=== PATIENT | female | born 1965 | race Caucasian/White ===

== ENCOUNTER 2018-08-26 13:16 | Emergency (ER) | payer MEDICAID ==
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
[2018-08-26 13:29] VITALS: BMI 35.3
[2018-08-26] MEDS ORDERED: TDAP Vaccine 0.5 mL Syr IM ONE (13:29)
[2018-08-26] MEDS ORDERED: Lidocaine 1% Inj (20ml) IJ STA (14:38)
--- NOTE | 2018-08-26 14:44 | CT ---
Date of service: 08/26/2018 PROCEDURE: CT MAXILLOFACIAL BONES WITHOUT CONTRAST HISTORY: LACERATION under R eeye, r/o fb COMPARISON: None available. TECHNIQUE: Contiguous axial CT images of the maxillofacial bones were obtained. Coronal and sagittal reformats were generated. Radiation dose: Total exam DLP = 726.1 mGy-cm. This CT exam was performed using one or more of the following dose reduction techniques: Automated exposure control, adjustment of the mA and/or kV according to patient size, and/or use of iterative reconstruction technique. FINDINGS: NASAL BONES: Unremarkable. ORBITS: Unremarkable. PARANASAL SINUSES/ MASTOIDS: Clear. MAXILLA: Unremarkable. MANDIBLE/ TEMPOROMANDIBULAR JOINTS: Unremarkable. SKULL BASE: Unremarkable. TEMPORAL BONES: Middle ears and mastoid grossly unremarkable. OTHER FINDINGS: No evidence of foreign body IMPRESSION: Unremarkable non contrast enhanced CT of the maxillofacial bones.
[2018-08-26] MEDS ORDERED: Bacitracin Ointment 30 GM TUBE TOP STA (15:08)
[2018-08-26] MEDS ORDERED: Bacitracin 500 Units/gm Oint Foilpak UD ONE (15:10)
[2018-08-26 15:32] VITALS: BP 140/84; PULSE 82; RESP 16; TEMP 98.1; O2SAT 97
== END 2018-08-26 15:35 | disposition home or self-care (01) ==
LOC: ED 13:16
DX: S01.81XA Laceration without foreign body of other part of head, initial encounter (principal); W22.8XXA Striking against or struck by other objects, initial encounter; Y93.E9 Activity, other interior property and clothing maintenance; Y92.008 Other place in unspecified non-institutional (private) residence as the place of occurrence of the external cause; Z23 Encounter for immunization